=== PATIENT | female | born 1990 | race Caucasian/White ===

== ENCOUNTER 2017-12-10 10:48 | Emergency (ER) | payer BC ==
[2017-12-10] MEDS: HYDROcodone/APAP 5/325MG 1 TAB TABLET PO (11:57)
[2017-12-10] MEDS: NAPROXEN 500 MG TABLET PO (11:57)
== END 2017-12-10 12:09 | disposition home or self-care (01) ==
LOC: ER 10:48
DX: S62.324A Displaced fracture of shaft of fourth metacarpal bone, right hand, initial encounter for closed fracture (principal); S62.326A Displaced fracture of shaft of fifth metacarpal bone, right hand, initial encounter for closed fracture; X58.XXXA Exposure to other specified factors, initial encounter; Y93.89 Activity, other specified; Y99.8 Other external cause status; Y92.89 Other specified places as the place of occurrence of the external cause
CPT/HCPCS: 29125; 73110; 73130; 99284

== ENCOUNTER 2017-12-16 05:57 | Day surgery (SDC) | payer BC ==
[2017-12-16] MEDS ORDERED: PROPOFOL 20 ML IV (06:25)
[2017-12-16] MEDS ORDERED: LIDOCAINE 2% PF Vial for OR 5 ML VIAL. (06:25)
[2017-12-16] MEDS ORDERED: ONDANSETRON PF 4 MG/2 ML VIAL. (06:25)
[2017-12-16] MEDS ORDERED: DEXAMETHASONE SOD PHOS 20 MG/5 ML VIAL. (06:25)
[2017-12-16 06:29] LABS: NEG OBC UR NEG; POS OBC UR POS; U PREG PATIENT NEGATIVE (NEG)
[2017-12-16] MEDS: SCOPOLAMINE 1.5MG PATCH. TD (06:41)
[2017-12-16] MEDS: IV RINGERS,LACTATED 1000ML 1,000 ML IV (06:41)
[2017-12-16] MEDS ORDERED: fentaNYL PF VIAL 100 MCG/2 ML VIAL (06:56)
[2017-12-16] MEDS ORDERED: MIDAZOLAM HCL/PF 2 MG/2 ML VIAL. (06:56)
[2017-12-16] MEDS ORDERED: MORPHINE SULFATE 2 MG/ML DISP.SYRIN. IV (07:00)
[2017-12-16] MEDS ORDERED: LIDOCAINE 1% PF 2 ML VIAL. ID (07:00)
[2017-12-16] MEDS ORDERED: fentaNYL PF VIAL 100 MCG/2 ML VIAL IV (07:00)
[2017-12-16] MEDS ORDERED: PROCHLORPERAZINE 10 MG/2 ML VIAL. IV (07:00)
[2017-12-16] MEDS ORDERED: ONDANSETRON PF 4 MG/2 ML VIAL. IV (07:00)
[2017-12-16] MEDS ORDERED: BUPIVACAINE-EPI 0.25%-1:200000 50 ML VIAL. (07:10)
[2017-12-16] MEDS: BUPIVACAINE 0.25% 50 ML VIAL. (08:33)
[2017-12-16] MEDS: fentaNYL PF VIAL 100 MCG/2 ML VIAL IV ×2 (09:27→09:39)
[2017-12-16] MEDS: HYDROcodone/APAP 7.5/325MG 1 TAB TABLET PO (09:56)
[2017-12-16] MEDS: MORPHINE SULFATE 2 MG/ML DISP.SYRIN. IV (10:15)
== END 2017-12-16 10:59 | disposition home or self-care (01) ==
LOC: SURG 05:57
DX: S62.306A Unspecified fracture of fifth metacarpal bone, right hand, initial encounter for closed fracture (principal); S62.394A Other fracture of fourth metacarpal bone, right hand, initial encounter for closed fracture; S62.396A Other fracture of fifth metacarpal bone, right hand, initial encounter for closed fracture; W19.XXXA Unspecified fall, initial encounter; Y93.K1 Activity, walking an animal; Y92.89 Other specified places as the place of occurrence of the external cause; Y99.8 Other external cause status; Z72.89 Other problems related to lifestyle; Z98.890 Other specified postprocedural states
CPT/HCPCS: 26615; 76000; 81025; C1713; J0690; J1100; J2250; J2270; J2405; J2704; J3010; J3490; J7120